=== PATIENT | female | born 1980 | race Caucasian/White ===

== ENCOUNTER 2024-09-10 21:01 | Emergency (ER) | payer MEDICAID ==
[~2024-09-10] VITALS: Ht 165.1 cm; Wt 63.5 kg
[2024-09-10] MEDS ORDERED: ACETAMINOPHEN ES 500 MG TABLET ONE (21:44)
[2024-09-10] MEDS ORDERED: KETO10TA2 PO (21:44)
[2024-09-10] MEDS ORDERED: IBUPROFEN 400 MG TABLET ONE (21:44)
[2024-09-10] MEDS ORDERED: AMOX/CLAVULANATE 875 MG TABLET ONE (21:44)
[2024-09-10] MEDS ORDERED: AMOX-430 PO (21:44)
[2024-09-10] MEDS ORDERED: ACET-2030 PO (21:44)
[2024-09-10] MEDS: AMOX/CLAVULANATE 875 MG TABLET PO ONE (21:48)
[2024-09-10] MEDS: ACETAMINOPHEN ES 500 MG TABLET PO ONE (21:48)
[2024-09-10] MEDS: IBUPROFEN 400 MG TABLET PO ONE (21:48)
[2024-09-10 21:56] VITALS: BP 105/70; TEMP 98; O2SAT 98
== END 2024-09-10 21:57 | disposition home or self-care (01) ==
LOC: ER 21:03
DX: B34.9 Viral infection, unspecified (principal); H66.93 Otitis media, unspecified, bilateral; K08.89 Other specified disorders of teeth and supporting structures

== ENCOUNTER 2024-09-13 10:53 | Emergency (ER) | payer MEDICAID ==
[~2024-09-13] VITALS: Ht 162.6 cm; Wt 55.8 kg
[~2024-09-13 10:53] MED LIST: ACET-2030 PO; AMOX-430 PO; KETO10TA2 PO
[2024-09-13] MEDS: IV NS 0.9% 1,000 ML BAG IV ONE (11:00)
[2024-09-13] MEDS: ONDANSETRON HCL/PF 4 MG/2 ML VIAL IVP ONE (11:00)
[2024-09-13] MEDS ORDERED: ONDANSETRON HCL/PF 4 MG/2 ML VIAL ONE (12:48)
[2024-09-13 12:52] LABS: BASOPHILS % (AUTO) 0.3 % (0.0-2.0); EOSINOPHILS % (AUTO) 0.2 % (0.0-6.0); HEMATOCRIT 41 % (33-45); HEMOGLOBIN 13.8 g/dL (11.5-14.8); LYMPHOCYTES # (AUTO) 0.8 K/uL (0.8-4.8); LYMPHOCYTES % (AUTO) 11.6 % (20.0-44.0); MEAN CORPUSCULAR HEMOGLOBIN 29 PG (26.0-33.0); MEAN CORPUSCULAR HGB CONC 34 g/dl (31.0-36.0); MEAN CORPUSCULAR VOLUME 87 fL (82-100); MONOCYTES # (AUTO) 0.3 K/uL (0.1-1.30); MONOCYTES % (AUTO) 3.9 % (2.0-12.0); NEUTROPHILS # (AUTO) 5.6 K/uL (1.8-8.9); PLATELET COUNT (AUTO) 249 K/uL (150-450); RED BLOOD CELL COUNT(AUTO) 4.72 MIL/uL (4.0-5.2); RED CELL DISTRIBUTION WIDTH 13.4 % (11.5-15.0); WHITE BLOOD COUNT (AUTO) 6.7 K/uL (4.3-11.0)
[2024-09-13 12:59] LABS: CALCIUM, SERUM 9.5 mg/dL (8.5-10.1); CREATININE 0.7 mg/dL (0.6-1.3); POTASSIUM 4.2 mmol/L (3.5-5.1)
[2024-09-13 13:05] LABS: ALBUMIN 3.7 g/dL (3.4-5.0); BILIRUBIN,DIRECT 0.2 mg/dL (0.0-0.2); BILIRUBIN,TOTAL 0.8 mg/dL (0.2-1.0); TOTAL PROTEIN, SERUM 8.6 g/dL (6.4-8.2)
[2024-09-13 13:25] LABS: APPEARANCE,URINE CLEAR (CLEAR); BILIRUBIN,URINE Negative (NEGATIVE); BLOOD, URINE Trace-intact Ery/uL (NEGATIVE); COLOR,URINE YELLOW (YELLOW); KETONES,URINE 40 mg/dL (NEGATIVE); LEUKOCYTE ESTERASE ,URINE Trace (NEGATIVE); PROTEIN,URINE Negative (NEGATIVE); UGLUCOSE Negative (NEGATIVE); UROBILINOGEN,URINE 0.2 EU/dL (0.2)
[2024-09-13 13:27] LABS: PREGNANCY TEST URINE QUAL NEGATIVE (NEGATIVE)
[2024-09-13 13:28] LABS: NITRITE, URINE NEGATIVE (NEGATIVE)
[2024-09-13 13:39] LABS: ADD URINE CULTURE YES; BACTERIA,URINE Rare /HPF (None Seen); SQUAMOUS EPITHELIAL CELL,UR Many /HPF (None Seen)
[2024-09-13] MEDS ORDERED: MECLIZINE HCL 25 MG TABLET ONE (14:03)
[2024-09-13] MEDS: MECLIZINE HCL 25 MG TABLET PO ONE (14:04)
[2024-09-13] MEDS ORDERED: NEOM10DR11 RIGHT EAR (14:45)
[2024-09-13] MEDS ORDERED: ONDA4TAB5 PO (14:45)
[2024-09-13] MEDS ORDERED: MECL-159 PO (14:45)
[2024-09-13 15:08] VITALS: BP 110/80; TEMP 98.7; O2SAT 95
== END 2024-09-13 15:08 | disposition home or self-care (01) ==
LOC: ER 11:18
DX: H60.8X1 Other otitis externa, right ear (principal); H83.09 Labyrinthitis, unspecified ear; R11.2 Nausea with vomiting, unspecified; R42 Dizziness and giddiness; Z79.899 Other long term (current) drug therapy
CPT/HCPCS: 99285; 96374; 71045; 96361; 93005; 85025; 80048; 87086; 83690; 80076; 84703; 81001; 36415; 82962; J8597; J2405; J7030

== ENCOUNTER 2024-11-15 15:11 | Emergency (ER) | payer MEDICAID ==
[~2024-11-15] VITALS: Ht 162.6 cm; Wt 54.9 kg
[~2024-11-15 15:11] MED LIST changes: +MECL-159 PO; +NEOM10DR11 RIGHT EAR; +ONDA4TAB5 PO
[2024-11-15] MEDS ORDERED: ONDANSETRON HCL/PF 4 MG/2 ML VIAL ONE (15:58)
[2024-11-15] MEDS ORDERED: FAMOTIDINE/PF INJ 20 MG/2 ML VIAL IV ONE (15:58)
[2024-11-15] MEDS ORDERED: ACETAMINOPHEN ES 500 MG TABLET ONE (15:58)
[2024-11-15] MEDS: FAMOTIDINE/PF INJ 20 MG/2 ML VIAL IV ONE (16:04)
[2024-11-15] MEDS: ACETAMINOPHEN ES 500 MG TABLET PO ONE (16:05)
[2024-11-15] MEDS: ONDANSETRON HCL/PF 4 MG/2 ML VIAL IVP ONE (16:05)
[2024-11-15 16:18] LABS: CALCIUM, SERUM 9.2 mg/dL (8.5-10.1); CREATININE 0.9 mg/dL (0.6-1.3); SODIUM SERUM 140.0 mmol/L (136-145); UREA NITROGEN, BLOOD 13.0 mg/dL (7-18)
[2024-11-15 16:20] LABS: PLATELET COUNT (AUTO) 205 K/uL (150-450); RED BLOOD CELL COUNT(AUTO) 4.65 MIL/uL (4.0-5.2); RED CELL DISTRIBUTION WIDTH 14.4 % (11.5-15.0); WHITE BLOOD COUNT (AUTO) 5.3 K/uL (4.3-11.0)
[2024-11-15] MEDS ORDERED: FAMO-131 PO (16:35)
[2024-11-15 17:16] LABS: APPEARANCE,URINE CLEAR (CLEAR); BLOOD, URINE NEGATIVE Ery/uL (NEGATIVE); LEUKOCYTE ESTERASE ,URINE 2+ (NEGATIVE); NITRITE, URINE NEGATIVE (NEGATIVE); UGLUCOSE NEGATIVE (NEGATIVE)
[2024-11-15 17:17] LABS: PREGNANCY TEST URINE QUAL NEGATIVE (NEGATIVE)
[2024-11-15 17:27] VITALS: BP 117/72; TEMP 97.9; O2SAT 98
[2024-11-15 17:27] LABS: ADD URINE CULTURE YES
== END 2024-11-15 17:28 | disposition home or self-care (01) ==
LOC: ER 15:32
DX: K21.9 Gastro-esophageal reflux disease without esophagitis (principal); R07.89 Other chest pain
CPT/HCPCS: 99285; 96374; 71045; 96375; 93005; 85025; 80048; 83690; 84703; 81001; 36415; J1308; J2405; 87086-TC